=== PATIENT | female | born 1950 | race Hispanic/Latino ===

== ENCOUNTER → 2025-04-08 11:56 | Outpatient (CLI) | payer BC, MEDICARE, SELFPAY ==
--- NOTE | 2025-04-08 | DI.RAD.S_ITS ---
PROCEDURE: XR HAND RT MIN 3V INDICATIONS: PAIN AND SWELLING TECHNIQUE: 3 views of the hand(s) acquired. COMPARISON: None. 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 There is also moderate degeneration in the remaining interphalangeal joints and the 1st MCP joint Soft tissues: No soft tissue abnormality. IMPRESSION: Multilevel degeneration Dictated by: Arcenio Steward M.D. on 04/09/2025 at 9:58 Approved by: Arcenio Steward M.D. on 04/09/2025 at 9:59
--- NOTE | 2025-04-08 | DI.RAD.S_ITS ---
PROCEDURE: XR HAND LT MIN 3V INDICATIONS: PAIN AND SWELLING TECHNIQUE: 3 views of the hand(s) acquired. COMPARISON: None. FINDINGS: Bones: Scattered cysts present in the proximal carpal row Joints: Mild distal radial ulnar, radiocarpal, STT, moderate 1st CMC, and moderate 1st DIP degeneration noted. There is also mild degeneration in all of the MCP and PIP joints. Soft tissues: No soft tissue abnormality. IMPRESSION: Degeneration Dictated by: Arcenio Steward M.D. on 04/09/2025 at 9:57 Approved by: Arcenio Steward M.D. on 04/09/2025 at 9:58
== END ==
PROVIDERS: PCP Family Medicine; Referring Provider Family Medicine; Visit Provider Family Medicine
DX: M19.041 Primary osteoarthritis, right hand (principal); M19.042 Primary osteoarthritis, left hand; M18.11 Unilateral primary osteoarthritis of first carpometacarpal joint, right hand
CPT/HCPCS: 73130